=== PATIENT | female | born 1975 | race Caucasian/White ===

== ENCOUNTER → 2017-11-27 | Outpatient (CLI) | payer OTHER | LOC: CIMAGING 14:10 | PROVIDERS: ATTEND Family Medicine | DX: Z12.31 Encounter for screening mammogram for malignant neoplasm of breast (principal) ==

== ENCOUNTER → 2018-01-13 | Outpatient (CLI) | payer OTHER | LOC: CIMAGING 15:30 | PROVIDERS: ATTEND Family Medicine | DX: Z13.828 Encounter for screening for other musculoskeletal disorder (principal) | CPT/HCPCS: 73000-PO ==

== ENCOUNTER → 2019-01-05 | Outpatient (CLI) | payer OTHER | LOC: EMCIMAGING 11:48 ==